=== PATIENT | female | born 1995 | race African-American/Black ===

== ENCOUNTER → 2016-05-28 | Day surgery (SDC) | payer OTHER ==
[~2016-05-28] MED LIST: BACTRIM DS 8001 TA1 PO; CLARITIN10 MG PO; CLINDAMYCIN HC300 MG PO; DIFLUCAN150 MG PO; ERY TABS333 MG PO; LARIN FE 1.5-31 EACH PO; NKHM; ZITHROMAX Z PA250 MG PO; ZITHROMAX250 MG PO
[2016-05-28 10:44] VITALS: BP 126/70
== END | disposition home or self-care (01) ==
LOC: SDC 05-21 08:45
DX: D24.2 Benign neoplasm of left breast (principal)

== ENCOUNTER → 2016-11-27 | Outpatient (CLI) | payer OTHER | END | disposition home or self-care (01) | LOC: US 10:00 | DX: N63 Unspecified lump in breast (principal) ==

== ENCOUNTER 2017-06-11 15:34 | Emergency (ER) | payer OTHER ==
[~2017-06-11] VITALS: Wt 72.6 kg
[2017-06-11 15:42] VITALS: BP 119/78
[2017-06-11 15:58] LABS: BILIRUBIN NEGATIVE (NEGATIVE); BLOOD NEGATIVE (NEGATIVE); CLARITY CLEAR (CLEAR); COLOR YELLOW (YELLOW); GLUCOSE NEGATIVE (NEGATIVE); KETONE NEGATIVE (NEGATIVE); LEUKO ESTERASE NEGATIVE (NEGATIVE); NITRITE NEGATIVE (NEGATIVE); UROBILINOGEN 0.2 E.U./dl (0.2-1.0)
[2017-06-11 16:05] LABS: RBC 0-2 rbc/hpf (0-2); WBC 0-2 wbc/hpf (0-5)
[2017-06-11 16:06] LABS: BACTERIA 1+; EPITHELIAL CELLS 20-25
== END 2017-06-11 17:18 | disposition home or self-care (01) ==
LOC: ED 15:34
PROVIDERS: Physician Assistant
DX: N89.8 Other specified noninflammatory disorders of vagina (principal); Z88.1 Allergy status to other antibiotic agents

== ENCOUNTER → 2017-09-10 | Outpatient (CLI) | payer OTHER | END | disposition home or self-care (01) | LOC: US 12:30 | DX: N63.10 Unspecified lump in the right breast, unspecified quadrant (principal); N64.4 Mastodynia ==

== ENCOUNTER 2018-01-03 10:29 | Emergency (ER) | payer SELFPAY ==
[~2018-01-03] VITALS: Ht 167.6 cm; Wt 72.6 kg
[2018-01-03 10:34] VITALS: BP 118/80
[2018-01-03 10:58] LABS: BILIRUBIN NEGATIVE (NEGATIVE); BLOOD NEGATIVE (NEGATIVE); CLARITY SL CLOUDY (CLEAR); COLOR YELLOW (YELLOW); GLUCOSE NEGATIVE (NEGATIVE); KETONE NEGATIVE (NEGATIVE); LEUKO ESTERASE NEGATIVE (NEGATIVE); NITRITE NEGATIVE (NEGATIVE); PH 6.5 (5.0-9.0); UROBILINOGEN 0.2 E.U./dl (0.2-1.0)
[2018-01-03 11:24] LABS: BACTERIA TRACE; MUCOUS TRACE; RBC 0-2 rbc/hpf (0-2)
[2018-01-06 18:02] LABS: GONOCOCCUS BY NAA Negative (Negative)
== END 2018-01-03 11:39 | disposition home or self-care (01) ==
LOC: ED 10:29
PROVIDERS: Nurse Practitioner Family
DX: B37.9 Candidiasis, unspecified (principal); Z88.1 Allergy status to other antibiotic agents

== ENCOUNTER 2018-05-07 11:46 | Emergency (ER) | payer SELFPAY ==
[~2018-05-07] VITALS: Ht 167.6 cm; Wt 77.1 kg
[2018-05-07 11:46] VITALS: BP 129/77
[2018-05-07] MEDS ORDERED: Tobrex Ophth S2.5 ML OPH (12:01)
== END 2018-05-07 12:06 | disposition home or self-care (01) ==
LOC: ED 11:46
DX: H10.89 Other conjunctivitis (principal); Z88.1 Allergy status to other antibiotic agents

== ENCOUNTER 2018-10-03 16:50 | Emergency (ER) | payer OTHER ==
[~2018-10-03] VITALS: Wt 74.8 kg
[2018-10-03 16:50] VITALS: BP 116/72
[~2018-10-03 16:50] MED LIST changes: +Tobrex Ophth S2.5 ML OPH
[2018-10-03] MEDS ORDERED: MONISTAT 745 GM V (17:10)
== END 2018-10-03 17:35 | disposition home or self-care (01) ==
LOC: ED 16:50
DX: B37.3 Candidiasis of vulva and vagina (principal); Z88.1 Allergy status to other antibiotic agents

== ENCOUNTER 2018-11-17 21:26 | Emergency (ER) | payer OTHER ==
[~2018-11-17] VITALS: Ht 167.6 cm; Wt 74.8 kg
[~2018-11-17 21:26] MED LIST changes: +MONISTAT 745 GM V
[2018-11-17 21:27] VITALS: BP 115/77
[2018-11-17] MEDS ORDERED: BENADRYL ALLERG25 M5 PO (21:44)
== END 2018-11-17 21:44 | disposition home or self-care (01) ==
LOC: ED 21:26
DX: L29.9 Pruritus, unspecified (principal); Z88.1 Allergy status to other antibiotic agents

== ENCOUNTER → 2019-01-02 | Outpatient (CLI) | payer OTHER ==
[~2019-01-02] MED LIST changes: +BENADRYL ALLERG25 M5 PO
[2019-01-02 11:19] LABS: FREE T4 0.91 ng/dl (0.76-1.46); THYROID STIM HORMONE (HS) 0.868 uIU/ml (0.358-4.75)
[2019-01-03 09:07] LABS: DHEA SULFATE 258.5 ug/dL (110.0-431.7); PROLACTIN 004465 21.7 ng/mL (4.8-23.3)
== END | disposition home or self-care (01) ==
LOC: LAB 09:55
PROVIDERS: Obstetrics & Gynecology
DX: L68.0 Hirsutism (principal)

== ENCOUNTER 2019-05-16 14:34 | Emergency (ER) | payer OTHER ==
[~2019-05-16] VITALS: Ht 165.1 cm; Wt 74.8 kg
[2019-05-16 14:39] VITALS: BP 111/73
[2019-05-16] MEDS ORDERED: Tobrex Ophth S2.5 ML OPH (15:33)
== END 2019-05-16 15:45 | disposition home or self-care (01) ==
LOC: ED 14:34
DX: H10.9 Unspecified conjunctivitis (principal); Z88.1 Allergy status to other antibiotic agents

== ENCOUNTER → 2020-04-22 | Outpatient (CLI) | payer OTHER | END | disposition home or self-care (01) | LOC: COVID19 16:04 | PROVIDERS: ATTEND Internal Medicine | DX: Z20.828 Contact with and (suspected) exposure to other viral communicable diseases (principal) ==

== ENCOUNTER 2020-09-25 23:44 | Emergency (ER) | payer BC ==
[~2020-09-25] VITALS: Ht 167.6 cm; Wt 81.6 kg
[2020-09-26 00:04] VITALS: BP 120/67
== END 2020-09-26 00:32 | disposition home or self-care (01) ==
LOC: ED 23:44
DX: H10.9 Unspecified conjunctivitis (principal); Z88.8 Allergy status to other drugs, medicaments and biological substances; Z79.899 Other long term (current) drug therapy

== ENCOUNTER 2020-10-31 17:41 | Emergency (ER) | payer BC ==
[~2020-10-31] VITALS: Ht 167.6 cm; Wt 81.6 kg
[2020-10-31 17:46] VITALS: BP 132/88
== END 2020-10-31 20:04 | disposition home or self-care (01) ==
LOC: ED 17:41
DX: T67.9XXA Effect of heat and light, unspecified, initial encounter (principal); R51.9 Headache, unspecified; Z88.8 Allergy status to other drugs, medicaments and biological substances; Z79.899 Other long term (current) drug therapy; X58.XXXA Exposure to other specified factors, initial encounter; Y93.89 Activity, other specified; Y92.89 Other specified places as the place of occurrence of the external cause; Y99.8 Other external cause status

== ENCOUNTER 2021-04-16 08:05 | Emergency (ER) | payer OTHER ==
[~2021-04-16] VITALS: Ht 167.6 cm; Wt 83.9 kg
[2021-04-16 08:23] VITALS: BP 125/74
[2021-04-16 08:44] LABS: BASO % 0.3 % (0.0-1.0); EOS # 0.2 10*3/uL (0.0-0.4); EOS % 1.9 % (1.0-4.0); HEMATOCRIT 38.1 % (37.0-47.0); LYMPH % 25.6 % (27.0-41.0); MEAN CELL VOLUME 84.5 fl (81.0-99.0); MEAN CORPUSCULAR HGB 28.6 pg (27.0-31.0); MEAN CORPUSCULAR HGB CONC 33.9 g/dl (33.0-37.0); MONO # 0.8 10*3/uL (0.1-1.0); MONO % 6.5 % (3.0-9.0); NEUT # 7.6 10*3/uL (2.3-7.9); NEUT % 65.4 % (47.0-73.0); PLATELET COUNT AUTOMATED 274 10*3/uL (130-400); RED BLOOD COUNT 4.51 10*6/uL (4.10-5.10); WHITE BLOOD COUNT 11.7 10*3/uL (4.8-10.8)
[2021-04-16 09:02] LABS: ALBUMIN 3.5 gm/dl (3.1-4.5); ALKALINE PHOSPHATASE 128 U/L (45-117); BUN 8 mg/dl (7-24); CHLORIDE 106 mmol/L (98-107); CREATININE 0.93 mg/dL (0.55-1.02); POTASSIUM 3.6 mmol/L (3.5-5.1); SGOT/AST 10 IU/L (3-35); SGPT/ALT 24 U/L (12-78); SODIUM 139 mmol/L (136-145); TOTAL PROTEIN 8.6 gm/dL (6.4-8.2)
[2021-04-16 09:59] LABS: BILIRUBIN Negative (Negative); BLOOD 1+ (Negative); CLARITY Clear (Clear); COLOR Yellow (Yellow); GLUCOSE Negative (Negative); KETONE 1+ (Negative); LEUKO ESTERASE Negative (Negative); NITRITE Negative (Negative)
[2021-04-16 10:13] LABS: BACTERIA 3+; EPITHELIAL CELLS 16-20
== END 2021-04-16 14:11 | disposition home or self-care (01) ==
LOC: ED 08:05
PROVIDERS: Emergency Medicine
DX: O46.91 Antepartum hemorrhage, unspecified, first trimester (principal); Z3A.01 Less than 8 weeks gestation of pregnancy

== ENCOUNTER 2021-04-18 09:00 | Emergency (ER) | payer OTHER ==
[2021-04-18 09:16] VITALS: BP 121/77
[2021-04-18 10:00] LABS: BILIRUBIN Negative (Negative); BLOOD Trace-Lysed (Negative); CLARITY Cloudy (Clear); COLOR Dark Yellow (Yellow); GLUCOSE Negative (Negative); KETONE 1+ (Negative); LEUKO ESTERASE Trace (Negative); NITRITE Negative (Negative); PH 5.5 (4.5-8.0); SPECIFIC GRAVITY >= 1.030 (1.001-1.030)
[2021-04-18 10:14] LABS: BACTERIA 3+; EPITHELIAL CELLS 16-20; MUCOUS 2+
[2021-04-18] MEDS ORDERED: CEPHALEXIN250 MG PO (10:20)
== END 2021-04-18 10:35 | disposition home or self-care (01) ==
LOC: ED 09:00
PROVIDERS: Student in an Organized Health Care Education/Training Program
DX: O23.91 Unspecified genitourinary tract infection in pregnancy, first trimester (principal); Z3A.01 Less than 8 weeks gestation of pregnancy

== ENCOUNTER 2021-04-26 18:32 | Emergency (ER) | payer OTHER ==
[~2021-04-26] VITALS: Wt 83.9 kg
[~2021-04-26 18:32] MED LIST changes: +CEPHALEXIN250 MG PO
[2021-04-26 18:42] VITALS: BP 102/70
[2021-04-26 19:40] LABS: BILIRUBIN Negative (Negative); BLOOD Trace-Lysed (Negative); CLARITY Clear (Clear); COLOR Yellow (Yellow); GLUCOSE Negative (Negative); KETONE Negative (Negative); LEUKO ESTERASE Negative (Negative); NITRITE Negative (Negative); PH 6.5 (4.5-8.0); SPECIFIC GRAVITY <= 1.005 (1.001-1.030); UROBILINOGEN 0.2 E.U./dl (0.0-1.0)
[2021-04-26 19:53] LABS: BACTERIA 2+
[2021-04-26 19:54] LABS: RBC 0-2 rbc/hpf (0-2)
== END 2021-04-26 21:10 | disposition home or self-care (01) ==
LOC: ED 18:32
PROVIDERS: Physician Assistant
DX: O98.511 Other viral diseases complicating pregnancy, first trimester (principal); U07.1 COVID-19; O99.511 Diseases of the respiratory system complicating pregnancy, first trimester; J98.8 Other specified respiratory disorders; Z3A.01 Less than 8 weeks gestation of pregnancy